=== PATIENT | female | born 1980 | race Two or more races ===

== ENCOUNTER 2018-09-19 14:00 | Emergency (ER) | payer OTHER ==
[~2018-09-19] VITALS: Ht 165.1 cm; Wt 52.2 kg
[2018-09-19 15:25] LABS: Basophils # (auto) 0 uL; Basophils % (auto) 0.6 % (0.0-2.0); Eosinophils # (auto) 0 uL; Eosinophils % (auto) 0.5 % (0.0-7.0); Hematocrit 38.8 % (36.0-46.0); Hemoglobin 12.9 g/dL (12.2-16.2); Lymphocytes # (auto) 2.2 uL; Lymphocytes % (auto) 29.5 % (10.0-50.0); Mean Corpuscular Hemoglobin 31.7 pg (28.0-32.0); Mean Corpuscular Hgb Conc. 33.2 g/dL (32.0-36.0); Mean Corpuscular Volume 95.5 fL (80.0-100.0); Monocytes # (auto) 0.7 uL; Monocytes % (auto) 8.8 % (0.0-12.0); Neutrophils # (auto) 4.5 uL; Neutrophils % (auto) 60.6 % (37.0-80.0); Nucleated Red Blood Cells % 0.1 %; Platelet Count (auto) 281 10^3/uL (140-450); Red Blood Cells 4.06 10^6/uL (4.0-5.20); Red Cell Distribution Width 15.1 % (11.8-14.3); White Blood Cell 7.5 10^3/uL (4.4-10.8)
[2018-09-19 15:27] LABS: Urine Pregnacy Test Negative (Negative)
[2018-09-19 15:30] LABS: Urine Bacteria NONE SEEN /hpf (None Seen); Urine Blood 1+ /uL (Negative); Urine Mucus FEW (None Seen); Urine Specific Gravity 1.031 (1.001-1.035); Urine WBC 9 /hpf (0 - 5)
[2018-09-19 15:46] LABS: Albumin 4.2 g/dL (3.4-5.0); Potassium 4.3 mmol/L (3.5-5.1)
[2018-09-19 15:51] LABS: BUN/Creatinine Ratio 24.4; Bilirubin, Total 0.5 mg/dL (0.2-1.0); Total Protein 7.9 g/dL (6.4-8.2)
[2018-09-19 16:03] LABS: Amphetamine Screen, Urine POSITIVE (NEGATIVE); Barbiturate Scree,Urine NEGATIVE (NEGATIVE); Benzodiazephine Screen, Urine POSITIVE (NEGATIVE); Cannabinoid Screen, Urine POSITIVE (NEGATIVE); Cocaine Screen, Urine POSITIVE (NEGATIVE); Opiate Scree,Urine NEGATIVE (NEGATIVE); Phencyclidine Screen, Urine NEGATIVE (NEGATIVE)
[2018-09-19] MEDS ORDERED: cefTRIAXone SOD 1,000 MG VL IM ONE (16:30)
[2018-09-19 16:32] LABS: Salicylate < 1.7 mg/dL (2.8-20.0)
[2018-09-19 16:36] LABS: Acetaminophen < 2.0 ug/mL (10-30)
[2018-09-19] MEDS ORDERED: QUEtiapine FUMARATE 100 MG TAB PO ONE (20:00)
[2018-09-19] MEDS ORDERED: traZODone HCL 50 MG TAB PO ONE (20:00)
[2018-09-20] MEDS ORDERED: QUEtiapine FUMARATE 25 MG TAB PO ONE (08:00)
[2018-09-20] MEDS ORDERED: traZODone HCL 50 MG TAB PO SCH (20:00)
[2018-09-20] MEDS ORDERED: QUEtiapine FUMARATE 100 MG TAB PO SCH (20:00)
[2018-09-20] MEDS: traZODone HCL 50 MG TAB PO SCH (22:13)
[2018-09-20] MEDS: QUEtiapine FUMARATE 100 MG TAB PO SCH (22:14)
[2018-09-21] MEDS: QUEtiapine FUMARATE 25 MG TAB PO SCH (10:22)
[2018-09-21] MEDS: traZODone HCL 50 MG TAB PO SCH (22:35)
[2018-09-21] MEDS: QUEtiapine FUMARATE 100 MG TAB PO SCH (22:35)
[2018-09-22] MEDS ORDERED: CIPROFLOXACIN HCL 500 MG TAB PO ONE (08:30)
[2018-09-22 08:44] VITALS: BP 100/56
[2018-09-22] MEDS: QUEtiapine FUMARATE 25 MG TAB PO SCH (10:00)
== END 2018-09-22 12:28 | disposition home or self-care (01) ==
LOC: ER 14:14
DX: F41.9 Anxiety disorder, unspecified (principal); F31.9 Bipolar disorder, unspecified; F12.10 Cannabis abuse, uncomplicated; N39.0 Urinary tract infection, site not specified; R45.851 Suicidal ideations; F15.10 Other stimulant abuse, uncomplicated; F17.210 Nicotine dependence, cigarettes, uncomplicated
CPT/HCPCS: 36415; 71045; 80053; 80307; 80329; 81001; 81025; 85025; 96372; 99284; J0696

== ENCOUNTER 2019-01-17 15:02 | Emergency (ER) | payer MEDICAID ==
[~2019-01-17] VITALS: Ht 165.1 cm; Wt 54.4 kg
[2019-01-17 15:50] VITALS: BP 109/72
[2019-01-17] MEDS ORDERED: KETOROLAC TROMETH 60MG/2ML VIAL IM ONE (19:00)
[2019-01-17] MEDS ORDERED: methylPREDNISolone SOD SUCC 125 MG/2 ML VL IM ONE (19:00)
[2019-01-17] MEDS ORDERED: BACLOFEN 10 MG TAB PO ONE (19:00)
== END 2019-01-17 20:36 | disposition home or self-care (01) ==
LOC: ER 15:02
DX: M62.830 Muscle spasm of back (principal); M79.89 Other specified soft tissue disorders; F15.10 Other stimulant abuse, uncomplicated; F12.10 Cannabis abuse, uncomplicated; F17.210 Nicotine dependence, cigarettes, uncomplicated; V43.62XA Car passenger injured in collision with other type car in traffic accident, initial encounter; Y93.89 Activity, other specified; Y99.8 Other external cause status; Y92.410 Unspecified street and highway as the place of occurrence of the external cause
CPT/HCPCS: 72100; 73560; 81025; 96372; 99284; J1885; J2930